=== PATIENT | female | born 1990 | race Caucasian/White ===

== ENCOUNTER 2019-08-10 11:32 | Outpatient (CLI) | payer OTHER ==
[2019-08-10] MEDS ORDERED: methyl folate PO (11:59)
[2019-08-10] MEDS ORDERED: MAGN400T9 PO (11:59)
[2019-08-10] MEDS ORDERED: DIAZ10TA PO (11:59)
[2019-08-10] MEDS ORDERED: TRAZ50TA66 PO (11:59)
[2019-08-10] MEDS ORDERED: DULO20CA45 PO (11:59)
[2019-08-10] MEDS ORDERED: PREN1TAB10 PO (11:59)
== END 2019-08-10 23:59 | disposition home or self-care (01) ==
LOC: STAR 11:32
PROVIDERS: ATTEND Colon & Rectal Surgery
DX: Z02.9 Encounter for administrative examinations, unspecified (principal)

== ENCOUNTER 2019-08-18 08:29 | Day surgery (SDC) | payer OTHER ==
[~2019-08-18] VITALS: Ht 167.6 cm; Wt 54.7 kg
[~2019-08-18 08:29] MED LIST: DIAZ10TA PO; DULO20CA45 PO; MAGN400T9 PO; PREN1TAB10 PO; TRAZ50TA66 PO; methyl folate PO
[2019-08-18] MEDS ORDERED: LORA-446 PO (08:59)
[2019-08-18] MEDS ORDERED: LIDOCAINE-MPF 1%, 2ML INFIL ONE (09:00)
[2019-08-18] MEDS ORDERED: CHLORHEXIDINE 15 ML UDC MM ONE (09:00)
[2019-08-18] MEDS ORDERED: CHLORHEXIDINE 15 ML UDC ONE (09:16)
[2019-08-18] MEDS ORDERED: LIDOCAINE-MPF 1%, 2ML ONE (09:18)
[2019-08-18 09:26] LABS: HCG UR SG 1.004 (1.003-1.030)
[2019-08-18] MEDS ORDERED: MIDAZOLAM 1 MG/ML, 2ML ONE (09:33)
[2019-08-18] MEDS ORDERED: FENTANYL PF 100 MCG/2ML ONE (09:34)
[2019-08-18] MEDS: LACTATED RINGERS 1,000 ML IV SCH ×2 (09:34→09:44)
[2019-08-18] MEDS ORDERED: OXYcodone 5 MG/5 ML ORAL.SOL UDC PO PRN (10:00)
[2019-08-18] MEDS ORDERED: HYDROcodone/APAP 7.5-325MG/15ML UDC PO PRN (10:00)
[2019-08-18] MEDS ORDERED: HYDROmorphone 1 MG/ML, 1ML INJ IVPush PRN (10:00)
[2019-08-18] MEDS ORDERED: FENTANYL PF 100 MCG/2ML IV PRN (10:00)
[2019-08-18] MEDS ORDERED: PROMETHAZINE 25 MG/ML, 1ML IVPush PRN (10:00)
[2019-08-18] MEDS ORDERED: MEPERIDINE/PF 25MG/0.5ML IVPush PRN (10:00)
[2019-08-18] MEDS ORDERED: EPINEPHRINE 1 MG/ML, 1ML ONE (12:20)
[2019-08-18] MEDS ORDERED: BUPIVACAINE/PF 0.5% ONE (12:20)
[2019-08-18] MEDS ORDERED: SCOPOLAMINE 1MG PATCH TD ONE ×2 (12:25→12:30)
[2019-08-18] MEDS ORDERED: ONDANSETRON 2MG/ML, 2ML ONE (12:37)
[2019-08-18] MEDS ORDERED: DEXAMETHASONE 4 MG/ML, 1ML ONE (12:37)
[2019-08-18] MEDS ORDERED: PROPOFOL 10 MG/ML, 20ML ONE (12:37)
[2019-08-18] MEDS ORDERED: BUPIVACAINE/PF-EPI 0.5% 1:200K INFIL ONE (12:58)
[2019-08-18] MEDS ORDERED: MEPERIDINE/PF 25MG/ML,1ML ONE (13:32)
== END 2019-08-18 15:30 | disposition home or self-care (01) ==
LOC: OUT 08:29
PROVIDERS: ATTEND Colon & Rectal Surgery
DX: K60.2 Anal fissure, unspecified (principal); Z11.59 Encounter for screening for other viral diseases; K62.1 Rectal polyp; F41.9 Anxiety disorder, unspecified; F32.9 Major depressive disorder, single episode, unspecified; G47.00 Insomnia, unspecified; Z79.899 Other long term (current) drug therapy; Z88.2 Allergy status to sulfonamides
CPT/HCPCS: 46200; 81025; J0171; J1100; J2175; J2250; J2405; J2704; J3010; J7120; U0001